=== PATIENT | male | born 2000 | race Caucasian/White ===

== ENCOUNTER 2019-04-03 22:51 | Emergency (ER) | payer BC ==
[~2019-04-03] VITALS: Ht 182.9 cm; Wt 90.7 kg
[2019-04-03 23:08] LABS: ABSOLUTE BASOPHILS 0.1 thou/uL (0.0-0.2); ABSOLUTE EOSINOPHILS 0.1 thou/uL (0.0-0.7); ABSOLUTE LYMPHOCYTES 1.8 thou/uL (0.8-5.3); ABSOLUTE MONOCYTES 0.9 thou/uL (0.0-1.2); ABSOLUTE NEUTROPHILS 6.3 thou/uL (1.6-8.1); BASOPHILS 0.8 %; EOSINOPHILS 0.9 %; HEMOGLOBIN 17.1 gm/dL (14.0-18.0); LYMPHOCYTES 19.6 %; MCH 29.9 pg (26.0-34.0); MCV 85.6 fL (80.0-100.0); MONOCYTES 9.5 %; MPV 8.9 fl. (7.2-11.1); NUCLEATED RBCS 0 /100WBC; PLATELET COUNT* 273 thou/uL (150-400); POLYS 69.2 %; RBC 5.72 mil/uL (4.50-6.00); WBC 9.2 thou/uL (4.0-11.0)
[2019-04-03 23:19] LABS: CALCIUM 9.4 mg/dL (8.5-10.1); CREATININE 1.3 mg/dL (0.6-1.3)
[2019-04-03 23:31] LABS: ALBUMIN 4.5 g/dL (3.4-5.0); TOTAL BILIRUBIN 0.3 mg/dL (<0.1-1.0); TOTAL PROTEIN 7.9 g/dL (6.4-8.2)
[2019-04-04 00:27] VITALS: BP 107/50
== END 2019-04-04 00:29 | disposition home or self-care (01) ==
LOC: M.ERS 22:51
PROVIDERS: Family Medicine
DX: R10.31 Right lower quadrant pain (principal)